=== PATIENT | female | born 1945 | race African-American/Black ===

== ENCOUNTER 2017-08-06 17:46 | Inpatient (IN) ==
[2017-08-06 18:34] LABS: Basophils % 0.3 % (0.0-0.8); Eosinophils # 0.2 10*3/uL (0.0-0.87); Eosinophils % 2.5 % (0.00-10.9); Hematocrit 35.5 VOL% (35.7-47.0); Immature Granulocytes % 0.2 %; Immature Granulocytes Absolute 0.01 #; Lymphocytes # 2.2 10*3/uL (1.4-4.0); Lymphocytes % 35.5 % (21.3-54.2); Mean Corpuscular HGB Conc 33.8 GM/DL (32-36); Mean Corpuscular Hemoglobin 31 PG (27-34); Mean Corpuscular Volume 90.8 FL (87-102); Monocytes # 0.8 10*3/uL (0.11-0.8); Monocytes % 13.2 % (1.7-12.7); Neutrophils # 3.1 10*3/uL (1.4-7.4); Neutrophils % 48.3 % (38.7-73.9); Platelet Count 268 T/CUMM (130-400); Red Blood Count 3.91 MC/CUMM (3.8-5.5); Red Cell Distribution Width 13.2 % (9.3-17.3); White Blood Count 6.3 T/CUMM (4-12)
[2017-08-06 18:47] LABS: Albumin 3.1 G/DL (3.4-5.0); Bilirubin,Total 0.5 MG/DL (0.2-1.0); Calcium 9.6 MG/DL (8.5-10.1); Osmolality,Calculated 277.4 MOS/KG (273-304); Total Protein 8.3 G/DL (6.4-8.3)
[2017-08-06 18:49] LABS: Troponin I Only 0.411 NG/ML (0.00-0.045)
[2017-08-06] MEDS ORDERED: ZALEPLON 5 MG CAPSULE PO PRN (18:54)
[2017-08-06] MEDS ORDERED: POTASSIUM CHLORIDE RIDER 10 MEQ in PREMIX 1 EACH IV PRN (21:31)
[2017-08-06] MEDS ORDERED: MAGNESIUM SULF RIDER 2 GM in PREMIX 1 EACH IV PRN (21:31)
[2017-08-06] MEDS ORDERED: NITROGLYCERIN SL 0.4 MG TABLET SL PRN (21:33)
[2017-08-06] MEDS: DEXTROSE 5% NACL 0.9% 1,000 ML IV SCH (23:11)
[2017-08-06] MEDS: ENOXAPARIN 60 MG/0.6 ML SYRINGE SUBCUT SCH (23:36)
[2017-08-06] MEDS: SODIUM CHLORIDE 0.9% 1,000 ML IV SCH (23:36)
[2017-08-07] MEDS: DEXTROSE 5% NACL 0.9% 1,000 ML IV SCH ×3 (02:50→19:20)
[2017-08-07 04:54] LABS: INR 1.1; PT Patient Result 11.4 SECS
[2017-08-07 05:40] LABS: Troponin I Only 0.373 NG/ML (0.00-0.045)
[2017-08-07] MEDS ORDERED: diphenhydrAMINE CAP 25 MG CAPSULE PO ONE (06:00)
[2017-08-07] MEDS ORDERED: DIAZEPAM 5 MG TABLET PO ONE (06:00)
[2017-08-07] MEDS: SODIUM CHLORIDE 0.9% 1,000 ML IV SCH ×2 (07:15→16:10)
[2017-08-07] MEDS: ATENOLOL 25 MG TABLET PO SCH ×2 (07:46→10:38)
[2017-08-07] MEDS: ASPIRIN EC 81 MG TABLET PO SCH ×2 (07:46→10:38)
[2017-08-07] MEDS: ENOXAPARIN 60 MG/0.6 ML SYRINGE SUBCUT SCH ×3 (07:47→21:46)
[2017-08-07] MEDS ORDERED: HEPARIN/NACL 0.9% 2 UNITS/ML 1,000 ML IV ONE (09:05)
[2017-08-07] MEDS ORDERED: LIDOCAINE 1% 20 ML VIAL ONE (09:05)
[2017-08-07] MEDS ORDERED: MIDAZOLAM 2 MG/2 ML VIAL ONE (09:17)
[2017-08-07] MEDS ORDERED: HYDROmorphone 2 MG/1 ML VIAL ONE (09:18)
[2017-08-07] MEDS: ISOSORBIDE MONONITRATE 20 MG TABLET PO SCH (10:38)
[2017-08-07] MEDS: BENAZEPRIL 40 MG TABLET PO SCH (10:38)
[2017-08-07] MEDS: amLODIPine 10 MG TABLET PO SCH (10:38)
[2017-08-07] MEDS: LORATADINE 10 MG TABLET PO SCH (12:21)
[2017-08-07] MEDS ORDERED: ACETAMINOPHEN 325 MG TABLET PO PRN (13:19)
[2017-08-07] MEDS ORDERED: SODIUM CHLORIDE 0.9% 1,000 ML IV SCH (13:30)
[2017-08-07] MEDS: hydroCHLOROthiazide 25 MG TABLET PO SCH (16:09)
[2017-08-07] MEDS: ONDANSETRON 4 MG/2 ML VIAL IV PRN (17:40)
[2017-08-08 05:17] LABS: Basophils % 0.2 % (0.0-0.8); Eosinophils # 0.1 10*3/uL (0.0-0.87); Eosinophils % 2.1 % (0.00-10.9); Hematocrit 31.9 VOL% (35.7-47.0); Hemoglobin 10.5 GM/DL (12.0-16.0); Immature Granulocytes % 0.2 %; Immature Granulocytes Absolute 0.01 #; Lymphocytes # 1.9 10*3/uL (1.4-4.0); Lymphocytes % 30.8 % (21.3-54.2); Mean Corpuscular HGB Conc 32.9 GM/DL (32-36); Mean Corpuscular Hemoglobin 30 PG (27-34); Mean Corpuscular Volume 91.1 FL (87-102); Mean Platelet Volume 10.4 FL (9.6-12.0); Monocytes # 0.9 10*3/uL (0.11-0.8); Monocytes % 15.1 % (1.7-12.7); Neutrophils # 3.1 10*3/uL (1.4-7.4); Neutrophils % 51.6 % (38.7-73.9); Platelet Count 245 T/CUMM (130-400); Red Cell Distribution Width 13.1 % (9.3-17.3); White Blood Count 6.1 T/CUMM (4-12)
[2017-08-08 05:46] LABS: Calcium 8.8 MG/DL (8.5-10.1); Osmolality,Calculated 278.3 MOS/KG (273-304); Potassium 4.2 MMOL/L (3.5-5.1)
[2017-08-08] MEDS: DEXTROSE 5% NACL 0.9% 1,000 ML IV SCH ×2 (06:12→11:45)
[2017-08-08] MEDS: ISOSORBIDE MONONITRATE 20 MG TABLET PO SCH (09:44)
[2017-08-08] MEDS: BENAZEPRIL 40 MG TABLET PO SCH (09:44)
[2017-08-08] MEDS: ASPIRIN EC 81 MG TABLET PO SCH (09:44)
[2017-08-08] MEDS: ATENOLOL 25 MG TABLET PO SCH (09:44)
[2017-08-08] MEDS: ONDANSETRON 4 MG/2 ML VIAL IV PRN (09:44)
[2017-08-08] MEDS: amLODIPine 10 MG TABLET PO SCH (09:44)
[2017-08-08] MEDS: hydroCHLOROthiazide 25 MG TABLET PO SCH (09:45)
[2017-08-08] MEDS: LORATADINE 10 MG TABLET PO SCH (09:45)
[2017-08-08] MEDS: ENOXAPARIN 60 MG/0.6 ML SYRINGE SUBCUT SCH (09:46)
[2017-08-08] MEDS: SODIUM CHLORIDE 0.9% 1,000 ML IV SCH ×2 (09:51→09:52)
[2017-08-08 12:10] VITALS: BP 100/55
== END 2017-08-08 14:54 | disposition home or self-care (01) | DRG 287 ==
LOC: EDUNIT# 17:46 → N.ED 17:46 → EDBD 17:46 → N.EDINP 17:46 → SUATTDRO 18:39 → N.TELES 19:45
PROVIDERS: ADMIT Internal Medicine; ATTEND Internal Medicine Geriatric Medicine
PROC: CLCCHCL (ICD-10-PCS; 2017-08-07 09:15)

== ENCOUNTER 2017-10-21 12:56 | Observation (INO) ==
[2017-10-21] MEDS ORDERED: ONDANSETRON 4 MG/2 ML VIAL IM STA (16:59)
[2017-10-21] MEDS ORDERED: MORPHINE 2 MG/1 ML SYRINGE IM STA (16:59)
[2017-10-21] MEDS ORDERED: ONDANSETRON 4 MG/2 ML VIAL ONE (17:14)
[2017-10-21] MEDS ORDERED: MORPHINE 2 MG/1 ML SYRINGE ONE (17:14)
[2017-10-21] MEDS ORDERED: MORPHINE 2 MG/1 ML SYRINGE IV STA (17:35)
[2017-10-21] MEDS ORDERED: ONDANSETRON 4 MG/2 ML VIAL IV STA (17:36)
[2017-10-21 17:37] LABS: Basophils % 0.4 % (0.0-0.8); Eosinophils # 0.1 10*3/uL (0.0-0.87); Eosinophils % 1.9 % (0.00-10.9); Hematocrit 32.1 VOL% (35.7-47.0); Hemoglobin 10.6 GM/DL (12.0-16.0); Lymphocytes # 2.1 10*3/uL (1.4-4.0); Lymphocytes % 36.2 % (21.3-54.2); Mean Corpuscular Hemoglobin 29 PG (27-34); Mean Corpuscular Volume 88.7 FL (87-102); Mean Platelet Volume 9.6 FL (9.6-12.0); Monocytes # 0.8 10*3/uL (0.11-0.8); Monocytes % 13.9 % (1.7-12.7); Neutrophils # 2.7 10*3/uL (1.4-7.4); Neutrophils % 47.6 % (38.7-73.9); Platelet Count 294 T/CUMM (130-400); Red Blood Count 3.62 MC/CUMM (3.8-5.5); Red Cell Distribution Width 14.6 % (9.3-17.3); White Blood Count 5.7 T/CUMM (4-12)
[2017-10-21 17:50] LABS: Calcium 9.2 MG/DL (8.5-10.1); Osmolality,Calculated 279.4 MOS/KG (273-304); Potassium 3.3 MMOL/L (3.5-5.1)
[2017-10-21 17:56] LABS: INR 1.1; PT Patient Result 11.2 SECS; Partial Thromboplastin Time 29.5 SECS (0-40)
[2017-10-21] MEDS ORDERED: oxyCODONE/ACETAMINOPHEN 5-325 MG TABLET PO STA (18:12)
[2017-10-21] MEDS ORDERED: oxyCODONE/ACETAMINOPHEN 5-325 MG TABLET ONE (18:27)
[2017-10-21 18:46] LABS: Sedimentation Rate-Westergren 105 MM/HR (0-30)
[2017-10-21] MEDS ORDERED: NITROGLYCERIN SL 0.4 MG TABLET SL PRN (19:07)
[2017-10-21] MEDS ORDERED: KETOROLAC 30 MG/1 ML VIAL IV PRN (19:08)
[2017-10-21] MEDS ORDERED: ROSUVASTATIN 10 MG TABLET PO SCH (21:00)
[2017-10-21] MEDS: methylPREDNISolone SOD SUC 40 MG/1 ML VIAL IV SCH (21:29)
[2017-10-22] MEDS: methylPREDNISolone SOD SUC 40 MG/1 ML VIAL IV SCH (03:14)
[2017-10-22] MEDS ORDERED: ISOSORBIDE MONONITRATE 30 MG TABLET PO SCH (09:00)
[2017-10-22] MEDS ORDERED: LORATADINE 10 MG TABLET PO SCH (09:00)
[2017-10-22] MEDS ORDERED: BENAZEPRIL 40 MG TABLET PO SCH (09:00)
[2017-10-22] MEDS ORDERED: ASPIRIN EC 81 MG TABLET PO SCH (09:00)
[2017-10-22] MEDS ORDERED: amLODIPine 10 MG TABLET PO SCH (09:00)
[2017-10-22] MEDS ORDERED: ATENOLOL 25 MG TABLET PO SCH (09:00)
[2017-10-22] MEDS ORDERED: hydroCHLOROthiazide 25 MG TABLET PO SCH (09:00)
[2017-10-22] MEDS ORDERED: hydroCHLOROthiazide 12.5 MG CAPSULE PO SCH (10:35)
[2017-10-22] MEDS ORDERED: hydroCHLOROthiazide 12.5 MG CAPSULE PO ONE (11:00)
[2017-10-22 12:39] VITALS: BP 140/73
== END 2017-10-22 15:05 | disposition home or self-care (01) ==
LOC: EDUNIT# → EDBD → N.EDINP 12:56 → N.ED 12:56 → N.3E 19:25
PROVIDERS: ADMIT Internal Medicine Geriatric Medicine; ATTEND Internal Medicine Geriatric Medicine

== ENCOUNTER 2021-08-10 11:36 | Observation (INO) ==
[2021-08-10 12:29] LABS: Basophils % 0.7 % (0.0-0.8); Eosinophils # 0.2 10*3/uL (0.0-0.87); Eosinophils % 3.9 % (0.00-10.9); Hematocrit 31.5 VOL% (35.7-47.0); Hemoglobin 10.1 GM/DL (12.0-16.0); Immature Granulocytes % 0.2 %; Immature Granulocytes Absolute 0.01 #; Lymphocytes # 1.6 10*3/uL (1.4-4.0); Lymphocytes % 38.6 % (21.3-54.2); Mean Corpuscular HGB Conc 32.1 GM/DL (32-36); Mean Corpuscular Volume 93.2 FL (87-102); Monocytes % 13.8 % (1.7-12.7); Neutrophils % 42.8 % (38.7-73.9); Platelet Count 220 T/CUMM (130-400); Red Blood Count 3.38 MC/CUMM (3.8-5.5); Red Cell Distribution Width 13.8 % (9.3-17.3); White Blood Count 4.1 T/CUMM (4-12)
[2021-08-10 12:51] LABS: Bilirubin,Total 0.4 MG/DL (0.20-1.00); Calcium 8.7 MG/DL (8.5-10.1); Potassium 3.7 MMOL/L (3.5-5.1); Total Protein 6.7 G/DL (6.4-8.2)
[2021-08-10] MEDS ORDERED: ACETAMINOPHEN 325 MG TABLET PO PRN (14:18)
[2021-08-10] MEDS ORDERED: DEXTROSE 50% 25 GM/50 ML VIAL IV PRN (14:18)
[2021-08-10] MEDS ORDERED: MORPHINE 2 MG/1 ML SYRINGE IV PRN (14:18)
[2021-08-10] MEDS ORDERED: BISACODYL 5 MG TABLET PO PRN (14:18)
[2021-08-10] MEDS ORDERED: GLUCAGON 1 MG VIAL IM PRN (14:18)
[2021-08-10] MEDS ORDERED: ONDANSETRON 4 MG/2 ML VIAL IV PRN (14:18)
[2021-08-10] MEDS ORDERED: NITROGLYCERIN SL 0.4 MG TABLET SL PRN (14:21)
[2021-08-10] MEDS ORDERED: ENOXAPARIN 40 MG/0.4 ML SYRINGE SUBCUT SCH (14:30)
[2021-08-10] MEDS ORDERED: ATORVASTATIN 20 MG TABLET PO SCH (21:00)
[2021-08-11 05:15] LABS: Basophils % 0.4 % (0.0-0.8); Eosinophils # 0.2 10*3/uL (0.0-0.87); Eosinophils % 3.7 % (0.00-10.9); Hematocrit 36.3 VOL% (35.7-47.0); Hemoglobin 11.6 GM/DL (12.0-16.0); Immature Granulocytes % 0.4 %; Immature Granulocytes Absolute 0.02 #; Lymphocytes % 42.8 % (21.3-54.2); Mean Corpuscular Volume 93.8 FL (87-102); Monocytes % 11.6 % (1.7-12.7); Neutrophils % 41.1 % (38.7-73.9); Platelet Count 236 T/CUMM (130-400); Red Blood Count 3.87 MC/CUMM (3.8-5.5); Red Cell Distribution Width 13.7 % (9.3-17.3); White Blood Count 4.7 T/CUMM (4-12)
[2021-08-11 05:37] LABS: Calcium 9.3 MG/DL (8.5-10.1); Osmolality,Calculated 282.1 MOS/KG (273-304); Potassium 3.7 MMOL/L (3.5-5.1); Risk Ratio 2.38; VLDL Cholesterol 14.8 MG/DL
[2021-08-11 08:55] VITALS: BP 149/65
[2021-08-11] MEDS ORDERED: ASPIRIN EC 325 MG TABLET PO SCH (09:00)
[2021-08-11] MEDS ORDERED: ISOSORBIDE MONONITRATE 20 MG TABLET PO SCH (09:00)
== END 2021-08-11 11:24 | disposition home or self-care (01) ==
LOC: N.ED 11:36 → N.EDINP 11:36 → SUATTDRO 14:18 → N.TELES 17:16
PROVIDERS: ADMIT Internal Medicine; ATTEND Internal Medicine

== ENCOUNTER 2022-07-16 | Observation (INO) ==
[2022-07-16 01:26] LABS: Basophils % 0.1 % (0.0-0.8); Hematocrit 34.4 VOL% (35.7-47.0); Hemoglobin 11.2 GM/DL (12.0-16.0); Immature Granulocytes % 0.5 %; Immature Granulocytes Absolute 0.04 #; Lymphocytes # 1.6 10*3/uL (1.4-4.0); Lymphocytes % 19.9 % (21.3-54.2); Mean Corpuscular HGB Conc 32.6 GM/DL (32-36); Mean Corpuscular Volume 91.7 FL (87-102); Mean Platelet Volume 10.2 FL (9.6-12.0); Monocytes # 1.1 10*3/uL (0.11-0.8); Monocytes % 13.3 % (1.7-12.7); Neutrophils % 66.2 % (38.7-73.9); Platelet Count 293 T/CUMM (130-400); Red Blood Count 3.75 MC/CUMM (3.8-5.5); Red Cell Distribution Width 14.6 % (9.3-17.3)
[2022-07-16 01:44] LABS: Alanine Aminotransferase 16 U/L (13-56); Albumin 3.2 G/DL (3.4-5.0); Alkaline Phosphatase 100 U/L (45-117); Aspartate Amino Transferase 14 U/L (0-37); Bilirubin,Total < 0.39 MG/DL (0.20-1.00); Blood Urea Nitrogen 24 MG/DL (7-18); Calcium 9.3 MG/DL (8.5-10.1); Carbon Dioxide 25 MMOL/L (21-32); Chloride 108 MMOL/L (98-107); Glucose 169 MG/DL (74-106); Osmolality,Calculated 288.3 MOS/KG (273-304); Potassium 3.4 MMOL/L (3.5-5.1); Sodium 141 MMOL/L (136-145); Total Protein 7.8 G/DL (6.4-8.2)
[2022-07-16] MEDS ORDERED: POTASSIUM CHLORIDE 20 MEQ TABLET PO STA (02:04)
[2022-07-16] MEDS ORDERED: GLUCAGON 1 MG VIAL IM PRN (02:57)
[2022-07-16] MEDS ORDERED: DEXTROSE 10% 250 ML BAG IV PRN (02:57)
[2022-07-16] MEDS ORDERED: ONDANSETRON 4 MG/2 ML VIAL IV PRN (03:01)
[2022-07-16] MEDS ORDERED: hydrALAZINE 20 MG/1 ML VIAL IV PRN (03:01)
[2022-07-16] MEDS ORDERED: SODIUM CHLORIDE 0.9% 1,000 ML IV SCH (03:30)
[2022-07-16 05:55] VITALS: BP 139/73
[2022-07-16 06:33] LABS: Hematocrit 35.1 VOL% (35.7-47.0); Hemoglobin 11.4 GM/DL (12.0-16.0); Immature Granulocytes % 0.2 %; Immature Granulocytes Absolute 0.01 #; Lymphocytes # 1.6 10*3/uL (1.4-4.0); Lymphocytes % 24.3 % (21.3-54.2); Mean Corpuscular HGB Conc 32.5 GM/DL (32-36); Mean Corpuscular Volume 91.9 FL (87-102); Mean Platelet Volume 9.5 FL (9.6-12.0); Monocytes # 0.5 10*3/uL (0.11-0.8); Monocytes % 7.2 % (1.7-12.7); Neutrophils % 68.3 % (38.7-73.9); Platelet Count 265 T/CUMM (130-400); Red Blood Count 3.82 MC/CUMM (3.8-5.5); Red Cell Distribution Width 14.6 % (9.3-17.3); White Blood Count 6.6 T/CUMM (4-12)
[2022-07-16 06:53] LABS: Alanine Aminotransferase 17 U/L (13-56); Albumin 3.2 G/DL (3.4-5.0); Alkaline Phosphatase 98 U/L (45-117); Aspartate Amino Transferase 13 U/L (0-37); Bilirubin,Total < 0.39 MG/DL (0.20-1.00); Blood Urea Nitrogen 22 MG/DL (7-18); Calcium 8.7 MG/DL (8.5-10.1); Carbon Dioxide 25 MMOL/L (21-32); Chloride 112 MMOL/L (98-107); Cholesterol 140 MG/DL (50-200); Glucose 110 MG/DL (74-106); HDL Cholesterol 62 MG/DL (40-60); Potassium 3.4 MMOL/L (3.5-5.1); Risk Ratio 2.26; Sodium 143 MMOL/L (136-145); Thyroid Stimulating Hormone 0.516 uIU/ml (0.358-3.74); Total Protein 7.8 G/DL (6.4-8.2); Triglycerides 54 MG/DL (2-150); VLDL Cholesterol 10.8 MG/DL
[2022-07-16] MEDS ORDERED: INSULIN LISPRO 100 UNIT/ML SUBCUT SCH (07:30)
[2022-07-16] MEDS ORDERED: PANTOPRAZOLE 40 MG TABLET PO SCH (09:00)
[2022-07-16] MEDS ORDERED: ASPIRIN EC 81 MG TABLET PO SCH (09:00)
[2022-07-16] MEDS ORDERED: ENOXAPARIN 40 MG/0.4 ML SYRINGE SUBCUT SCH (09:00)
[2022-07-16] MEDS ORDERED: POTASSIUM CHLORIDE 20 MEQ TABLET PO ONE (09:08)
== END 2022-07-16 11:37 | disposition home or self-care (01) ==
LOC: EDUNIT# → EDBD → N.ED → N.EDINP
PROVIDERS: ADMIT Internal Medicine; ATTEND Internal Medicine